=== PATIENT | male | born 1975 | race American Indian/Alaskan Native ===

== ENCOUNTER 2016-08-03 16:21 | Emergency (ER) | payer OTHER ==
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
[2016-08-03 20:49] VITALS: BP 130/83
== END 2016-08-03 20:50 | disposition home or self-care (01) ==
LOC: ED 16:21
DX: M54.5 Low back pain (principal); F17.200 Nicotine dependence, unspecified, uncomplicated; F12.10 Cannabis abuse, uncomplicated; V89.2XXA Person injured in unspecified motor-vehicle accident, traffic, initial encounter; Y93.9 Activity, unspecified; Y92.9 Unspecified place or not applicable; Y99.9 Unspecified external cause status
CPT/HCPCS: 99282

== ENCOUNTER 2017-12-29 12:46 | Emergency (ER) | payer SELFPAY ==
[2017-12-29 13:07] VITALS: BP 130/78
--- NOTE | 2017-12-29 15:06 | XRay Report ---
AP AND LATERAL LUMBOSACRAL SPINE: Pain, injury. The vertebral bodies are well mineralized and normal in alignment and vertebral height with well preserved interspace distances. The visualized portions of the posterior elements are normal. IMPRESSION: Normal study.
[2017-12-29] MEDS ORDERED: DELTASONE PO ONE (15:47)
[2017-12-29] MEDS ORDERED: TORADOL IM ONE (15:47)
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
== END 2017-12-29 17:11 | disposition home or self-care (01) ==
LOC: ED 12:46
DX: S39.012A Strain of muscle, fascia and tendon of lower back, initial encounter (principal); Z98.890 Other specified postprocedural states; Z79.899 Other long term (current) drug therapy; Z91.041 Radiographic dye allergy status; Z91.013 Allergy to seafood; V89.2XXA Person injured in unspecified motor-vehicle accident, traffic, initial encounter; Y93.89 Activity, other specified; Y99.9 Unspecified external cause status; Y92.488 Other paved roadways as the place of occurrence of the external cause
CPT/HCPCS: 72100; 96372; 99283; J1885; J7512

== ENCOUNTER 2019-03-25 04:52 | Emergency (ER) | payer SELFPAY ==
[2019-03-25 05:22] VITALS: BP 118/78
--- NOTE | 2019-03-25 08:47 | Emergency Department Report ---
HPI - General Chief Complaint: Earache Time Seen by Provider: 03/25/19 08:21 - HPI HPI: 43-year-old male presents to the emergency department with a complaint of a 2 day history of right ear pain. The patient also complains of a flareup of his right upper wisdom tooth that he thinks is making his ear pain worse. He denies any fever, decreased hearing. He has not taken anything for her symptoms prior to presentation. No PCP. Denies smoking. ED Past Medical Hx - Past Medical History Previous Medical History?: Yes Additional medical history: bulging disc in back - Surgical History Past Surgical History?: Yes Additional Surgical History: left jaw surgery - Social History Smoking Status: Never Smoker Substance Use Type: None - Medications Home Medications: Home Medications Medication Instructions Recorded Confirmed Last Taken Type Cyclobenzaprine [Flexeril] 10 mg PO TID PRN #15 tablet 08/03/16 Unknown Rx Ibuprofen [Motrin] 600 mg PO Q8H PRN #15 tablet 08/03/16 Unknown Rx Cyclobenzaprine [Flexeril] 10 mg PO QHS PRN #10 tablet 12/29/17 Unknown Rx Ibuprofen [Motrin] 600 mg PO Q8H PRN #30 tablet 12/29/17 Unknown Rx Chlorhexidine Gluconate [Hibiclens] 10 ml TP BID #240 liquid 02/26/18 Unknown Rx Ciclopirox 0.77% (Nf) [Loprox 1 applic TP BID #3 tube 02/26/18 Unknown Rx 0.77% (Nf)] Fluconazole [Diflucan] 150 mg PO ONCE #3 tablet 02/26/18 Unknown Rx Mupirocin [Bactroban 2%] 15 applic TP TID #15 gm 02/26/18 Unknown Rx Sulfamethoxazole/Trimethoprim 1 each PO BID #20 tablet 02/26/18 Unknown Rx [Bactrim DS TAB] Fluconazole [Diflucan TAB] 100 mg PO BID #14 tablet 03/15/18 Unknown Rx Ibuprofen [Motrin 800 MG tab] 800 mg PO Q8HR PRN #20 tablet 03/25/19 Unknown Rx Neomycin/Polymyxin B/Hydrocort 4 drop AD TID #1 bottle 03/25/19 Unknown Rx [Jlojfeel-Xyatyifjp-Sn Ear Soln] ED Review of Systems ROS: Stated complaint: RT EAR PAIN Other details as noted in HPI Comment: All other systems reviewed and negative Constitutional: denies: chills, fever Eyes: denies: eye pain ENT: ear pain, dental pain. denies: throat pain Respiratory: denies: cough, shortness of breath Cardiovascular: denies: chest pain Gastrointestinal: denies: abdominal pain Skin: denies: rash, lesions Neurological: denies: headache, weakness Physical Exam - Physical Exam Vital Signs: Vital Signs 03/25/19 05:10 Temperature 98.6 F Pulse Rate 84 Respiratory 18 Rate Blood Pressure 118/78 O2 Sat by Pulse 97 Oximetry Physical Exam: GENERAL: The patient is well-developed well-nourished. HENT: Normocephalic. Atraumatic. Patient has moist mucous membranes. There is some mild erythema to the right external ear canal and the patient has some discomfort with the speculum exam of the ear. Normal appearing bilateral tympanic membranes. Oropharynx is clear. There is some tenderness to palpation to the right posterior upper gum line but no visible or palpable abscess. No drooling or trismus. EYES: Extraocular motions are intact. Pupils equal reactive to light bilaterally. NECK: Supple. Trachea is midline. CHEST/LUNGS: Clear to auscultation. There is no respiratory distress noted. HEART/CARDIOVASCULAR: Regular. There is no tachycardia. There is no murmur. ABDOMEN: There is no abdominal distention. SKIN: Skin is warm and dry. NEURO: The patient is awake, alert, and oriented. The patient is cooperative. The patient has no focal neurologic deficits. The patient has normal speech. MUSCULOSKELETAL: There is no tenderness or deformity. There is no evidence of acute injury. ED Course Vital Signs 03/25/19 05:10 Temperature 98.6 F Pulse Rate 84 Respiratory 18 Rate Blood Pressure 118/78 O2 Sat by Pulse 97 Oximetry ED Medical Decision Making - Medical Decision Making Patient's main concern is a few days of some right ear pain. On examination he may have an early otitis externa with some erythema and some tenderness with the ear speculum exam. Normal-appearing tympanic membranes. He also complains of some pain to the right upper posterior molar or wisdom tooth. No visible or palpable abscess. The patient will be placed on an antibiotic eardrop and given ibuprofen for his discomfort. He has been given referrals for primary care and a dental clinic. - Differential Diagnosis otitis externa, TMJ, otitis media, dental abscess Critical Care Time: No Critical care attestation.: If time is entered above; I have spent that time in minutes in the direct care of this critically ill patient, excluding procedure time. ED Disposition Clinical Impression: Pain, dental Otitis externa Qualifiers: Otitis externa type: unspecified type Chronicity: acute Laterality: right Qualified Code(s): H60.501 - Unspecified acute noninfective otitis externa, right ear Disposition: TO HOME OR SELFCARE Is pt being admited?: No Condition: Stable Instructions: Otitis Externa (ED), Toothache (ED) Additional Instructions: Please follow up with a primary care physician in the next few days. I'm also giving you a referral for a local dental clinic to follow-up regarding your wisdom tooth and dental pain. Return to the emergency Department with any worsening of your symptoms or any acute distress. Prescriptions: Ibuprofen [Motrin 800 MG tab] 800 mg PO Q8HR PRN #20 tablet PRN Reason: Pain , Severe (7-10) Neomycin/Polymyxin B/Hydrocort [Nhvandog-Qroxeupsy-Ez Ear Soln] 4 drop AD TID #1 bottle Referrals: [facility] [Outside] - 3-5 Days [facility] [Outside] - 3-5 Days Time of Disposition: 08:47
== END 2019-03-25 09:29 | disposition home or self-care (01) ==
LOC: ED 04:52
DX: H60.91 Unspecified otitis externa, right ear (principal); K08.89 Other specified disorders of teeth and supporting structures; Z98.890 Other specified postprocedural states; Z91.041 Radiographic dye allergy status; Z91.013 Allergy to seafood